=== PATIENT | male | born 1970 | race African-American/Black ===

== ENCOUNTER 2023-07-26 17:19 | Emergency (ER) | payer OTHER ==
[2023-07-26 18:58] VITALS: BMI 26.2
[2023-07-26 20:00] LABS: BASO % 0.4 % (0-2.0); EOS % 0.4 % (0-4.5); HEMATOCRIT 36.7 % (35.4-49); HEMOGLOBIN 12.1 GM/dL (11.7-16.9); LYMPH % 12.3 % (8-40); MCH 28.2 pg (25.7-33.7); MEAN CELL VOLUME 85.2 fl (80-96); MONO % 7.8 % (3.8-10.2); NEUT % 79.1 % (42.8-82.8); PLATELET COUNT 223 10^3/uL (134-434); RBC 4.31 M/mm3 (4.00-5.60); WHITE BLOOD COUNT 7.3 K/mm3 (4.0-10.0)
[2023-07-26 20:18] LABS: POTASSIUM 4.4 mmol/L (3.5-5.1)
[2023-07-26 20:20] LABS: ALBUMIN 3.4 g/dl (3.4-5.0); BLOOD UREA NITROGEN 22.8 mg/dL (7-18)
[2023-07-26 20:23] LABS: CREATININE 1.4 mg/dL (0.55-1.3)
[2023-07-26 20:24] LABS: TOT PROT 6.5 g/dl (6.4-8.2)
[2023-07-26 20:25] LABS: BILIRUBIN,TOTAL 0.5 mg/dL (0.2-1)
[2023-07-27 06:02] VITALS: BP 145/80; PULSE 88; RESP 18; TEMP 98.5
== END 2023-07-27 06:13 | disposition home or self-care (01) ==
LOC: JER 17:19
DX: K59.00 Constipation, unspecified (principal); K80.20 Calculus of gallbladder without cholecystitis without obstruction; F10.20 Alcohol dependence, uncomplicated; M89.9 Disorder of bone, unspecified; Y90.9 Presence of alcohol in blood, level not specified
CPT/HCPCS: 36415; 71045-TC-FY; 74177-TC; 80053; 83605; 84484; 85025; 93005; 93010; 99285-25

== ENCOUNTER 2023-09-14 14:01 | Inpatient (IN) | payer OTHER ==
[2023-09-14 15:18] LABS: BASO % 0.5 % (0-2.0); EOS % 0.5 % (0-4.5); HEMATOCRIT 42.3 % (35.4-49); HEMOGLOBIN 13.6 GM/dL (11.7-16.9); LYMPH % 19.9 % (8-40); MCH 27.5 pg (25.7-33.7); MCHC 32.2 g/dl (32.0-35.9); MEAN CELL VOLUME 85.6 fl (80-96); MEAN PLT VOLUME 7.7 fl (7.5-11.1); MONO % 6.4 % (3.8-10.2); NEUT % 72.7 % (42.8-82.8); PLATELET COUNT 275 10^3/uL (134-434); RBC 4.94 M/mm3 (4.00-5.60); RDW 14.9 % (11.9-15.9); VENOUS BASE EXCESS -11.4 mmol/L (-2-2); VENOUS PCO2 34.9 mmHg (38-52); VENOUS PH 7.246 (7.310-7.410); WHITE BLOOD COUNT 5.8 K/mm3 (4.0-10.0)
[2023-09-14 15:38] LABS: CHLORIDE 98 mmol/L (98-107); SODIUM 133 mmol/L (136-145)
[2023-09-14 15:41] LABS: ALBUMIN 3.5 g/dl (3.4-5.0); ANION GAP 21 mmol/L (4-13); BLOOD UREA NITROGEN 40.3 mg/dL (7-18); CALCIUM 9.4 mg/dL (8.5-10.1); CO2 14 mmol/L (21-32); MAGNESIUM 2.1 mg/dL (1.8-2.4)
[2023-09-14] MEDS ORDERED: ONDANSETRON 4 MG/2 ML VIAL IVPUSH ONE (15:43)
[2023-09-14 15:44] LABS: PHOSPHOROUS 4.1 mg/dL (2.5-4.9); SGOT/AST 12 U/L (15-37); SGPT/ALT 19 U/L (13-61)
[2023-09-14 15:46] LABS: BILIRUBIN,TOTAL 0.8 mg/dL (0.2-1)
[2023-09-14 15:47] LABS: ALK PHOS 139 U/L (45-117)
[2023-09-14] MEDS ORDERED: DEXTROSE 50%-WATER 25 GM/50 ML DISP.SYRIN IVPUSH PRN (15:52)
[2023-09-14] MEDS ORDERED: ONDANSETRON 4 MG/2 ML VIAL ONE (15:54)
[2023-09-14] MEDS ORDERED: INSULIN REGULAR 100 UNITS in SODIUM CHLORIDE 99 ML IVPB SCH ×2 (16:00→16:45)
[2023-09-14 16:24] LABS: EPI CELLS 1 /uL (0-25.1); HYALINE CASTS 0 /uL (0-3.1); URINE APPEARANCE CLEAR; URINE BACTERIA 4 /uL (0-1359); URINE BILIRUBIN NEGATIVE (NEGATIVE); URINE COLOR YELLOW; URINE GLUCOSE (UA) 3+ (NEGATIVE); URINE KETONE 3+ (NEGATIVE); URINE LEUK ESTERASE NEGATIVE (NEGATIVE); URINE NITRITE NEGATIVE (NEGATIVE); URINE PROTEIN 1+ (NEGATIVE); URINE RBC 7 /uL (0-23.9); URINE UROBILINOGEN 0.2 mg/dL (0.2-1.0); URINE WBC 3 /uL (0-25.8)
[2023-09-14 16:29] LABS: GLUCOSE,RANDOM 641 mg/dL (74-106)
[2023-09-14] MEDS ORDERED: INSULIN REGULAR HUMAN 100 UNITS/ML *VIAL* (FOR IVP) IVPUSH ONE (16:33)
[2023-09-14] MEDS ORDERED: SODIUM CHLORIDE 1,000 ML IV STA ×2 (16:33→16:36)
[2023-09-14] MEDS ORDERED: hydrALAZINE HCL 20 MG/ML VIAL IVPUSH PRN (16:42)
[2023-09-14] MEDS ORDERED: hydrALAZINE HCL 20 MG/ML VIAL IVPUSH ONE (16:42)
[2023-09-14] MEDS ORDERED: SODIUM CHLORIDE 1,000 ML IV SCH ×2 (16:45→16:52)
[2023-09-14] MEDS ORDERED: hydrALAZINE HCL 20 MG/ML VIAL ONE (17:07)
[2023-09-14] MEDS ORDERED: METOCLOPRAMIDE HCL INJECTION 10 MG/2 ML VIAL ONE (17:10)
[2023-09-14] MEDS: METOCLOPRAMIDE HCL INJECTION 10 MG/2 ML VIAL IVPUSH PRN (17:25)
[2023-09-14 21:07] LABS: CHLORIDE 109 mmol/L (98-107); POTASSIUM 4.1 mmol/L (3.5-5.1); SODIUM 140 mmol/L (136-145)
[2023-09-14 21:10] LABS: ALBUMIN 3.1 g/dl (3.4-5.0); ANION GAP 16 mmol/L (4-13); BLOOD UREA NITROGEN 36.9 mg/dL (7-18); CO2 15 mmol/L (21-32)
[2023-09-14 21:13] LABS: SGOT/AST 10 U/L (15-37); SGPT/ALT 18 U/L (13-61)
[2023-09-14 21:16] LABS: ALK PHOS 123 U/L (45-117); BILIRUBIN,TOTAL 0.5 mg/dL (0.2-1); TOT PROT 6.4 g/dl (6.4-8.2)
[2023-09-14 21:18] LABS: GLUCOSE,RANDOM 425 mg/dL (74-106)
[2023-09-14] MEDS: HEPARIN NA (PORCINE) 5,000 UNITS/ML 1ML VIAL SQ SCH (21:41)
[2023-09-14] MEDS: MUPIROCIN 2% TOPICAL OINTMENT FOR DECOLONIZATION NS SCH (21:42)
[2023-09-14] MEDS ORDERED: CHLORHEXIDINE GLUCONATE 4% CLEANSER FOR DECOLONIZATION TP SCH (22:00)
[2023-09-14] MEDS ORDERED: D5-NS + 40 MEQ KCL - 40 MEQ/1,000 ML INFUS.BAG IV SCH (22:30)
[2023-09-15 01:37] LABS: BLOOD UREA NITROGEN 33.3 mg/dL (7-18); CALCIUM 8.7 mg/dL (8.5-10.1)
[2023-09-15 01:42] LABS: CREATININE 1.9 mg/dL (0.55-1.3); PHOSPHOROUS 1.3 mg/dL (2.5-4.9)
[2023-09-15] MEDS: HEPARIN NA (PORCINE) 5,000 UNITS/ML 1ML VIAL SQ SCH ×3 (06:17→21:14)
[2023-09-15] MEDS: INSULIN ASPART SLIDING SCALE (NOVOLOG) 1 VIAL SQ SCH ×4 (07:55→21:22)
[2023-09-15 08:09] LABS: INR 1.18 (0.83-1.09); PROTHROMBIN TIME (PATIENT) 13.7 SEC (9.7-13.0)
[2023-09-15] MEDS: NAPH,MB-DB/K PH,MBDB POWDER PACKET PO SCH ×2 (08:40→13:01)
[2023-09-15] MEDS ORDERED: SODIUM CHLORIDE 1,000 ML IV SCH (09:00)
[2023-09-15] MEDS ORDERED: LACTATED RINGERS SOLUTION 1,000 ML/1,000 ML INFUS.BAG IV SCH (09:30)
[2023-09-15] MEDS: FAMOTIDINE 20 MG TABLET PO SCH (09:51)
[2023-09-15] MEDS: MUPIROCIN 2% TOPICAL OINTMENT FOR DECOLONIZATION NS SCH (09:51)
[2023-09-15] MEDS ORDERED: INSULIN (LEVEMIR) 100 UNITS/ML UNITS SQ SCH (10:00)
[2023-09-15] MEDS ORDERED: PANTOPRAZOLE SODIUM 40 MG VIAL IVPUSH SCH (10:00)
[2023-09-15] MEDS ORDERED: amLODIPine BESYLATE 5 MG TABLET (FP) PO SCH (10:00)
[2023-09-15] MEDS: SERTRALINE HCL 25 MG TABLET (FP) PO SCH (10:25)
[2023-09-15 10:53] LABS: BASO % 0.5 % (0-2.0); EOS % 0.3 % (0-4.5); HEMATOCRIT 35.1 % (35.4-49); HEMOGLOBIN 11.5 GM/dL (11.7-16.9); LYMPH % 13.9 % (8-40); MCH 27.5 pg (25.7-33.7); MCHC 32.8 g/dl (32.0-35.9); MEAN CELL VOLUME 83.9 fl (80-96); MONO % 6.3 % (3.8-10.2); PLATELET COUNT 250 10^3/uL (134-434); RBC 4.18 M/mm3 (4.00-5.60); RDW 14.5 % (11.9-15.9); WHITE BLOOD COUNT 7.3 K/mm3 (4.0-10.0)
[2023-09-15 11:23] LABS: POTASSIUM 4.5 mmol/L (3.5-5.1)
[2023-09-15 11:26] LABS: ALBUMIN 2.6 g/dl (3.4-5.0); BLOOD UREA NITROGEN 23.5 mg/dL (7-18); CALCIUM 8.3 mg/dL (8.5-10.1)
[2023-09-15 11:28] LABS: CREATININE 1.7 mg/dL (0.55-1.3)
[2023-09-15 11:30] LABS: BILIRUBIN,TOTAL 0.6 mg/dL (0.2-1); TOT PROT 5.5 g/dl (6.4-8.2)
[2023-09-15 12:00] VITALS: BMI 25.6
[2023-09-15] MEDS: METOCLOPRAMIDE HCL INJECTION 10 MG/2 ML VIAL IVPUSH PRN (13:21)
[2023-09-15] MEDS ORDERED: METOCLOPRAMIDE HCL INJECTION 10 MG/2 ML VIAL IVPUSH PRN (14:48)
[2023-09-15] MEDS ORDERED: NAPH,MB-DB/K PH,MBDB POWDER PACKET PO SCH (22:00)
[2023-09-15] MEDS ORDERED: ATORVASTATIN CA 40 MG TABLET (FP) PO SCH ×2 (22:00)
[2023-09-16] MEDS: HEPARIN NA (PORCINE) 5,000 UNITS/ML 1ML VIAL SQ SCH ×3 (06:05→21:51)
[2023-09-16] MEDS: INSULIN ASPART SLIDING SCALE (NOVOLOG) 1 VIAL SQ SCH ×4 (06:08→21:56)
[2023-09-16] MEDS ORDERED: INSULIN (LEVEMIR) 100 UNITS/ML UNITS SQ SCH (07:00)
[2023-09-16] MEDS: INSULIN (LEVEMIR) 100 UNITS/ML UNITS SQ SCH (07:14)
[2023-09-16 09:27] LABS: BASO % 0.5 % (0-2.0); EOS % 2.4 % (0-4.5); HEMATOCRIT 36.5 % (35.4-49); HEMOGLOBIN 11.9 GM/dL (11.7-16.9); LYMPH % 31.2 % (8-40); MCH 27.5 pg (25.7-33.7); MCHC 32.7 g/dl (32.0-35.9); MEAN CELL VOLUME 84.1 fl (80-96); MEAN PLT VOLUME 7.5 fl (7.5-11.1); MONO % 10.4 % (3.8-10.2); NEUT % 55.5 % (42.8-82.8); PLATELET COUNT 229 10^3/uL (134-434); RBC 4.34 M/mm3 (4.00-5.60); RDW 14.4 % (11.9-15.9); WHITE BLOOD COUNT 3.7 K/mm3 (4.0-10.0)
[2023-09-16 09:44] LABS: POTASSIUM 4.3 mmol/L (3.5-5.1)
[2023-09-16 09:45] LABS: POTASSIUM 4.3 mmol/L (3.5-5.1)
[2023-09-16 09:48] LABS: BLOOD UREA NITROGEN 14.2 mg/dL (7-18); CALCIUM 8.2 mg/dL (8.5-10.1)
[2023-09-16 09:50] LABS: CREATININE 1.3 mg/dL (0.55-1.3)
[2023-09-16] MEDS: FAMOTIDINE 20 MG TABLET PO SCH (09:51)
[2023-09-16] MEDS: amLODIPine BESYLATE 5 MG TABLET (FP) PO SCH (09:51)
[2023-09-16] MEDS: SERTRALINE HCL 25 MG TABLET (FP) PO SCH (09:51)
[2023-09-16 09:53] LABS: ALBUMIN 2.7 g/dl (3.4-5.0); CALCIUM 8.2 mg/dL (8.5-10.1)
[2023-09-16 09:56] LABS: CREATININE 1.3 mg/dL (0.55-1.3)
[2023-09-16 09:58] LABS: BILIRUBIN,TOTAL 0.6 mg/dL (0.2-1); TOT PROT 5.7 g/dl (6.4-8.2)
[2023-09-16] MEDS ORDERED: ATORVASTATIN CA 40 MG TABLET (FP) PO SCH (10:18)
[2023-09-16 14:21] VITALS: RESP 18
[2023-09-16] MEDS: LISINOPRIL 5 MG TABLET PO SCH (14:44)
[2023-09-16 21:25] LABS: HIV INTERPRETATION NEGATIVE (NEGATIVE)
[2023-09-17] MEDS: INSULIN ASPART SLIDING SCALE (NOVOLOG) 1 VIAL SQ SCH ×3 (06:15→17:12)
[2023-09-17] MEDS: HEPARIN NA (PORCINE) 5,000 UNITS/ML 1ML VIAL SQ SCH ×2 (06:15→13:53)
[2023-09-17] MEDS: INSULIN (LEVEMIR) 100 UNITS/ML UNITS SQ SCH (06:57)
[2023-09-17 08:44] LABS: HEMATOCRIT 35.5 % (35.4-49); HEMOGLOBIN 11.7 GM/dL (11.7-16.9); MCH 28.3 pg (25.7-33.7); MCHC 33.1 g/dl (32.0-35.9); MEAN CELL VOLUME 85.4 fl (80-96); MEAN PLT VOLUME 7.4 fl (7.5-11.1); PLATELET COUNT 211 10^3/uL (134-434); RBC 4.16 M/mm3 (4.00-5.60); RDW 14.1 % (11.9-15.9); WHITE BLOOD COUNT 3.2 K/mm3 (4.0-10.0)
[2023-09-17] MEDS: LISINOPRIL 5 MG TABLET PO SCH (09:13)
[2023-09-17] MEDS: FAMOTIDINE 20 MG TABLET PO SCH (09:13)
[2023-09-17] MEDS: SERTRALINE HCL 25 MG TABLET (FP) PO SCH (09:13)
[2023-09-17] MEDS: amLODIPine BESYLATE 5 MG TABLET (FP) PO SCH (09:13)
[2023-09-17 09:23] LABS: POTASSIUM 4.3 mmol/L (3.5-5.1)
[2023-09-17 09:35] LABS: CREATININE 1.2 mg/dL (0.55-1.3); PHOSPHOROUS 2.6 mg/dL (2.5-4.9)
[2023-09-17 09:36] LABS: BILIRUBIN,TOTAL 0.6 mg/dL (0.2-1); TOT PROT 5.8 g/dl (6.4-8.2)
[2023-09-17 09:40] LABS: ALBUMIN 2.7 g/dl (3.4-5.0)
[2023-09-17 09:41] LABS: BLOOD UREA NITROGEN 16.4 mg/dL (7-18); CALCIUM 8.9 mg/dL (8.5-10.1)
[2023-09-17 09:42] LABS: MAGNESIUM 1.5 mg/dL (1.8-2.4)
[2023-09-17] MEDS ORDERED: MAGNESIUM SULF 50% (8.12 MEQ/2 ML-1 GM VIAL) IVPB ONE (14:30)
[2023-09-17 16:07] VITALS: BP 148/86; PULSE 75; TEMP 98.5
== END 2023-09-17 17:45 | disposition home or self-care (01) | DRG 420 ==
LOC: JER 14:01 → JICU 15:47 → J6S 09-15 14:44
PROVIDERS: ADMIT Internal Medicine Pulmonary Disease; ATTEND Internal Medicine
DX: E11.10 Type 2 diabetes mellitus with ketoacidosis without coma (principal); I16.0 Hypertensive urgency; F32.A Depression, unspecified; R45.851 Suicidal ideations; N17.9 Acute kidney failure, unspecified; R80.9 Proteinuria, unspecified; E78.5 Hyperlipidemia, unspecified; F39 Unspecified mood [affective] disorder; I12.9 Hypertensive chronic kidney disease with stage 1 through stage 4 chronic kidney disease, or unspecified chronic kidney disease; E11.22 Type 2 diabetes mellitus with diabetic chronic kidney disease; N18.9 Chronic kidney disease, unspecified; Z91.148 Patient's other noncompliance with medication regimen for other reason
CPT/HCPCS: 0241U-QW; 36415; 71045-TC-FY; 76775-TC; 80048; 80053; 81003; 82010; 82803; 82962; 83036; 83735; 84100; 84484; 85025; 85027; 85610; 86160; 86704; 86706; 86803; 87086; 87389; 93005; 93010; 93970-TC; 97116-GP; 97162-GP; 99285-25; J1644

== ENCOUNTER 2024-11-27 18:43 | Inpatient (IN) | payer OTHER ==
[2024-11-27 20:54] LABS: BASO % 0.4 % (0-2.0); EOS % 4.9 % (0-4.5); HEMATOCRIT 38.3 % (35.4-49); HEMOGLOBIN 12.6 GM/dL (11.7-16.9); LYMPH % 16.7 % (8-40); MCH 27.1 pg (25.7-33.7); MCHC 32.8 g/dl (32.0-35.9); MEAN CELL VOLUME 82.8 fl (80-96); MEAN PLT VOLUME 7.7 fl (7.5-11.1); MONO % 8.9 % (3.8-10.2); NEUT % 69.1 % (42.8-82.8); PLATELET COUNT 195 10^3/uL (134-434); RBC 4.63 M/mm3 (4.00-5.60); RDW 16.2 % (11.9-15.9); WHITE BLOOD COUNT 4.1 K/mm3 (4.0-10.0)
[2024-11-27 20:55] LABS: VENOUS BASE EXCESS 4.5 mmol/L (-2-2); VENOUS O2 SATURATION 25.5 % (70-80); VENOUS PCO2 56.2 mmHg (38-52); VENOUS PH 7.363 (7.310-7.410)
[2024-11-27 21:03] LABS: INR 1.25 (0.83-1.09); PROTHROMBIN TIME (PATIENT) 13.6 SEC (9.7-13.0)
[2024-11-27 21:06] LABS: ACTIVATED PTT 32.9 SECONDS (25.2-36.5)
[2024-11-27 21:19] LABS: CHLORIDE 102 mmol/L (98-107); POTASSIUM 4.4 mmol/L (3.5-5.1); SODIUM 137 mmol/L (136-145)
[2024-11-27 21:21] LABS: CALCIUM 8.9 mg/dL (8.5-10.1)
[2024-11-27 21:22] LABS: ALBUMIN 2.8 g/dl (3.4-5.0); ANION GAP 4 mmol/L (4-13); BLOOD UREA NITROGEN 26.5 mg/dL (7-18); CO2 31 mmol/L (21-32)
[2024-11-27 21:23] LABS: GLUCOSE,RANDOM 437 mg/dL (74-106)
[2024-11-27 21:25] LABS: CREATININE 1.9 mg/dL (0.55-1.3); SGOT/AST 8 U/L (15-37); SGPT/ALT 22 U/L (13-61)
[2024-11-27 21:26] LABS: BILIRUBIN,TOTAL 0.3 mg/dL (0.2-1); TOT PROT 6.6 g/dl (6.4-8.2)
[2024-11-27 21:27] LABS: ALK PHOS 167 U/L (45-117)
[2024-11-27] MEDS: INSULIN REGULAR HUMAN 100 UNITS/ML *VIAL IVPUSH ONE (21:36)
[2024-11-28] MEDS: INSULIN (LEVEMIR) 100 UNITS/ML UNITS SQ ONE (02:10)
[2024-11-28] MEDS: SODIUM CHLORIDE 1,000 ML IV STA ×2 (02:10)
[2024-11-28] MEDS ORDERED: OSELTAMIVIR PHOSPHATE 30 MG CAPSULE ONE (05:40)
[2024-11-28] MEDS: OSELTAMIVIR PHOSPHATE 30 MG CAPSULE PO SCH (05:48)
[2024-11-28 06:10] VITALS: BMI 24.6
[2024-11-28] MEDS: INSULIN ASPART SLIDING SCALE (NOVOLOG) 1 VIAL SQ SCH (06:46)
[2024-11-28 08:28] LABS: BASO % 0.3 % (0-2.0); EOS % 5.5 % (0-4.5); HEMATOCRIT 39.6 % (35.4-49); HEMOGLOBIN 13.1 GM/dL (11.7-16.9); LYMPH % 29.6 % (8-40); MEAN CELL VOLUME 81.8 fl (80-96); MEAN PLT VOLUME 7.8 fl (7.5-11.1); MONO % 7.3 % (3.8-10.2); NEUT % 57.3 % (42.8-82.8); PLATELET COUNT 251 10^3/uL (134-434); RBC 4.84 M/mm3 (4.00-5.60); WHITE BLOOD COUNT 3.4 K/mm3 (4.0-10.0)
[2024-11-28] MEDS: INSULIN (LEVEMIR) 100 UNITS/ML UNITS SQ SCH ×2 (08:32→22:31)
[2024-11-28 08:45] LABS: CALCIUM 9.5 mg/dL (8.5-10.1)
[2024-11-28 08:46] LABS: ALBUMIN 3.1 g/dl (3.4-5.0); BLOOD UREA NITROGEN 21.9 mg/dL (7-18); MAGNESIUM 1.7 mg/dL (1.8-2.4)
[2024-11-28 08:49] LABS: CREATININE 1.5 mg/dL (0.55-1.3); PHOSPHOROUS 2.2 mg/dL (2.5-4.9)
[2024-11-28 08:50] LABS: BILIRUBIN,TOTAL 0.4 mg/dL (0.2-1)
[2024-11-28 08:51] LABS: TOT PROT 7.4 g/dl (6.4-8.2)
[2024-11-28] MEDS: FAMOTIDINE 20 MG TABLET PO SCH (10:58)
[2024-11-28] MEDS: amLODIPine BESYLATE 10 MG TABLET (FP) PO SCH (10:58)
[2024-11-28] MEDS: HEPARIN NA (PORCINE) 5,000 UNITS/ML 1ML VIAL SQ SCH (10:58)
[2024-11-28] MEDS: NAPH,MB-DB/K PH,MBDB POWDER PACKET PO ONE (15:36)
[2024-11-28] MEDS: MAGNESIUM OXIDE 400 MG TABLET (FP) PO ONE (15:36)
[2024-11-28] MEDS: ATORVASTATIN CA 80 MG TABLET (FP) PO SCH (22:31)
[2024-11-29 04:35] VITALS: RESP 19; TEMP 97.9
[2024-11-29] MEDS: INSULIN (NOVOLOG MIX 70/30) 100 UNITS/ML MDV SQ SCH (07:37)
[2024-11-29 09:41] LABS: BASO % 0.2 % (0-2.0); EOS % 2.8 % (0-4.5); HEMATOCRIT 39.1 % (35.4-49); HEMOGLOBIN 12.5 GM/dL (11.7-16.9); LYMPH % 11.4 % (8-40); MCH 26.9 pg (25.7-33.7); MCHC 32.1 g/dl (32.0-35.9); MEAN CELL VOLUME 83.7 fl (80-96); NEUT % 77.6 % (42.8-82.8); PLATELET COUNT 254 10^3/uL (134-434); RBC 4.67 M/mm3 (4.00-5.60); RDW 15.9 % (11.9-15.9); WHITE BLOOD COUNT 6.7 K/mm3 (4.0-10.0)
[2024-11-29 10:00] LABS: POTASSIUM 4.6 mmol/L (3.5-5.1)
[2024-11-29 10:15] LABS: ALBUMIN 2.7 g/dl (3.4-5.0); CALCIUM 9.1 mg/dL (8.5-10.1)
[2024-11-29 10:16] LABS: BLOOD UREA NITROGEN 18.3 mg/dL (7-18); MAGNESIUM 1.7 mg/dL (1.8-2.4)
[2024-11-29 10:19] LABS: CREATININE 1.3 mg/dL (0.55-1.3)
[2024-11-29 10:20] LABS: BILIRUBIN,TOTAL 0.5 mg/dL (0.2-1); TOT PROT 6.4 g/dl (6.4-8.2)
[2024-11-29 11:06] VITALS: BP 131/77; PULSE 88
== END 2024-11-29 12:12 | disposition home or self-care (01) | DRG 469 ==
LOC: JER 18:43 → JERBED 11-28 00:27 → OBSVTOIN 11-28 01:58 → J7W 11-28 06:52
PROVIDERS: ADMIT Internal Medicine
DX: N17.9 Acute kidney failure, unspecified (principal); I10 Essential (primary) hypertension; J10.1 Influenza due to other identified influenza virus with other respiratory manifestations; I69.354 Hemiplegia and hemiparesis following cerebral infarction affecting left non-dominant side; E11.65 Type 2 diabetes mellitus with hyperglycemia; E78.5 Hyperlipidemia, unspecified; E86.0 Dehydration; Z91.148 Patient's other noncompliance with medication regimen for other reason; F39 Unspecified mood [affective] disorder
CPT/HCPCS: 0241U-QW; 36415; 70450-TC; 71045-TC-FY; 80053; 80307; 82010; 82803; 82947; 82962; 83036; 83735; 84100; 84484; 85025; 85610; 85730; 93005; 93010; 99285-25; G0378; J1644